=== PATIENT | female | born 1930 | race Caucasian/White ===

== ENCOUNTER 2017-11-09 11:38 | Inpatient (IN) | payer BC ==
[~2017-11-09] VITALS: Ht 309.9 cm; Wt 66.7 kg
[~2017-11-09 11:38] MED LIST: CLOP75TA15 PO; ESTR0.3T3 PO; LOSA50TA21 PO; NIFE60TA2 PO; PRAV40TA3 PO; TERB250T53 PO; ZOLP10TA2 PO
[2017-11-09] MEDS ORDERED: ASPIRIN 325 MG TABLET PO ONE (12:00)
[2017-11-09] MEDS ORDERED: IV NORMAL SALINE 500 ML BAG IV ONE (12:00)
[2017-11-09] MEDS ORDERED: NITROGLYCERIN 0.4 MG/TAB BOTTLE SL ONE ×2 (12:00→12:11)
[2017-11-09 12:03] LABS: BASOPHILS # (AUTO) 0.1 K/uL (0.0-8.0); BASOPHILS % (AUTO) 0.8 % (0.0-2.0); EOSINOPHILS % (AUTO) 0.3 % (0.0-7.0); HEMATOCRIT 40.4 % (31.2-41.9); HEMOGLOBIN 14.1 g/dL (10.9-14.3); LYMPHOCYTES # (AUTO) 2.2 K/uL (20.0-40.0); LYMPHOCYTES % (AUTO) 19.6 % (20.5-51.5); MEAN CORPUSCULAR HGB CONC 35 g/dL (32.3-35.6); MEAN CORPUSCULAR VOLUME 88.7 fL (75.5-95.3); MONOCYTES # (AUTO) 0.4 K/uL (2.0-10.0); MONOCYTES % (AUTO) 3.1 % (0.0-11.0); NEUTROPHILS # (AUTO) 8.7 K/uL (1.8-8.9); NEUTROPHILS % (AUTO) 76.2 % (38.5-71.5); PLATELET COUNT (AUTO) 242 K/uL (179-408); RED BLOOD CELL COUNT(AUTO) 4.56 MIL/uL (3.63-4.92); WHITE BLOOD COUNT (AUTO) 11.4 K/uL (3.8-11.8)
[2017-11-09] MEDS ORDERED: ASPIRIN 325 MG TABLET ONE (12:11)
[2017-11-09 12:14] LABS: CARBON DIOXIDE 22 mmol/L (21-32); CHLORIDE 105 mmol/L (98-107); CREATININE 0.8 mg/dL (0.6-1.3); GLUCOSE 142 mg/dL (74-106); POTASSIUM 4.1 mmol/L (3.5-5.1); UREA NITROGEN, BLOOD 19 mg/dL (7-18)
--- NOTE | 2017-11-09 12:20 | NUR ---
2nd dose of Nitro SL given, pain 6/10 and no , change from previous, HR 70, BP 134/73.
--- NOTE | 2017-11-09 12:25 | NUR ---
3rd dose of Nitro 0.4 mg Sl given pain 5/10 and decreased, HR 74, BP 139/60.
[2017-11-09 12:27] LABS: ALANINE AMINOTRANSFERASE 27 U/L (14-59); ALKALINE PHOSPHATASE 99 U/L (50-136); ASPARTATE AMINOTRANSFERASE 18 U/L (15-37); BILIRUBIN,DIRECT 0.1 mg/dL (0.0-0.2); BILIRUBIN,TOTAL 0.5 mg/dL (0.2-1.0); TOTAL PROTEIN, SERUM 6.8 g/dL (6.4-8.2)
[2017-11-09] MEDS ORDERED: SWABABLE VALVE TRANSFER SET EA MC ONE (12:51)
[2017-11-09] MEDS ORDERED: IV NORMAL SALINE 100 ML ONE (12:51)
[2017-11-09] MEDS ORDERED: IOHEXOL 350 100 ML INFUS..BTL ONE (12:51)
--- NOTE | 2017-11-09 12:51 | NUR ---
Pt signed consent for CTA, placed in the chart.
--- NOTE | 2017-11-09 13:07 | NUR ---
Pt left ER for CT.
[2017-11-09 14:30] VITALS: BP 167/68
[2017-11-09 15:53] VITALS: BP 176/65
[2017-11-09] MEDS: ACETAMINOPHEN 325 MG TABLET PO PRN ×2 (17:18→23:14)
[2017-11-09] MEDS: CARVEDILOL 6.25 MG TABLET PO SCH (18:22)
[2017-11-09] MEDS: ENOXAPARIN SODIUM 80 MG/0.8 ML DISP.SYRIN SQ SCH ×2 (18:22→20:59)
--- NOTE | 2017-11-09 18:40 | NUR ---
PT. CAME ON THE UNIT FROM ER VIA STRETCHER ON STABLE CONDITION. CHEST CT SCAN WITH CONTRAST DONE, AWAITING RESULT. LAST TROPONIN RELAYED TO MD. NOT IN DISTRESS. WILL CONTINUE MONITOR
[2017-11-09 20:00] VITALS: BP 155/62
--- NOTE | 2017-11-09 20:59 | NUR ---
Patient just received Lovenox 70 mg SQ 2 hrs ago from the day shift, so tonight's scheduled Lovenox not administered.
[2017-11-09] MEDS ORDERED: ATORVASTATIN 40 MG TABLET PO SCH (21:00)
[2017-11-09] MEDS: SUCRALFATE 1 G TABLET PO SCH (23:08)
[2017-11-10] VITALS (13 sets, daily range): BP systolic 93–161; BP diastolic 44–84
[2017-11-10] MEDS ORDERED: ZOLPIDEM 5 MG TABLET PO PRN (01:45)
[2017-11-10] MEDS ORDERED: diphenhydrAMINE 50 MG CAPSULE PO PRN (01:45)
[2017-11-10 06:13] LABS: BASOPHILS # (AUTO) 0.1 K/uL (0.0-8.0); BASOPHILS % (AUTO) 1.2 % (0.0-2.0); EOSINOPHILS # (AUTO) 0.2 K/uL (0.0-0.7); EOSINOPHILS % (AUTO) 2.1 % (0.0-7.0); HEMATOCRIT 36.3 % (31.2-41.9); LYMPHOCYTES # (AUTO) 3.6 K/uL (20.0-40.0); LYMPHOCYTES % (AUTO) 40.3 % (20.5-51.5); MEAN CORPUSCULAR HEMOGLOBIN 31.8 uug (24.7-32.8); MEAN CORPUSCULAR HGB CONC 36 g/dL (32.3-35.6); MEAN CORPUSCULAR VOLUME 89.2 fL (75.5-95.3); MONOCYTES # (AUTO) 0.6 K/uL (2.0-10.0); MONOCYTES % (AUTO) 6.8 % (0.0-11.0); NEUTROPHILS # (AUTO) 4.5 K/uL (1.8-8.9); NEUTROPHILS % (AUTO) 49.6 % (38.5-71.5); PLATELET COUNT (AUTO) 216 K/uL (179-408); RED BLOOD CELL COUNT(AUTO) 4.07 MIL/uL (3.63-4.92)
[2017-11-10 06:24] LABS: CARBON DIOXIDE 25 mmol/L (21-32); CHLORIDE 105 mmol/L (98-107); CREATININE 0.8 mg/dL (0.6-1.3); GLUCOSE 95 mg/dL (74-106); MAGNESIUM 1.8 mg/dL (1.8-2.4); PHOSPHOROUS 3.4 mg/dL (2.5-4.9); POTASSIUM 3.7 mmol/L (3.5-5.1); UREA NITROGEN, BLOOD 15 mg/dL (7-18)
[2017-11-10 06:37] LABS: THYROID STIMULATING HORMONE 5.357 mIU/mL (0.358-3.740)
[2017-11-10] MEDS: SUCRALFATE 1 G TABLET PO SCH ×2 (06:41→11:30)
[2017-11-10] MEDS ORDERED: PANTOPRAZOLE SODIUM 40 MG TABLET.DR PO SCH (07:00)
--- NOTE | 2017-11-10 07:18 | NUR ---
Received critical report of troponin 16. 457. Patient sleeping, comfortable at this time, not in distress. Tele SR first degree block. Called report to MD injection molding machine tender, or Jesus Duque
[2017-11-10] MEDS: CARVEDILOL 6.25 MG TABLET PO SCH (07:59)
[2017-11-10] MEDS ORDERED: MORPHINE SULFATE 4 MG/1 ML DISP.SYRIN IV PRN (08:00)
--- NOTE | 2017-11-10 08:00 | NUR ---
Vital signs taken and recorded. Seen by Simon Sierra. EKG done. RA O2 sat 97%. Placed on O2 at 2L/NC. BP medications given
[2017-11-10] MEDS ORDERED: NITROGLYCERIN 0.4 MG/TAB BOTTLE SL PRN (08:15)
[2017-11-10] MEDS: ENOXAPARIN SODIUM 80 MG/0.8 ML DISP.SYRIN SQ SCH (08:20)
--- NOTE | 2017-11-10 08:25 | NUR ---
Simon Sierra arranging transfer to [facility] for heart cath, speaking with Dr. Castelan. Aspirin, Plavix, nitro SL given. Lovenox on hold.
[2017-11-10] MEDS ORDERED: ASPIRIN EC 325 MG TABLET.DR PO SCH (09:00)
[2017-11-10] MEDS ORDERED: NIFEdipine XL 60 MG TABSR PO SCH (09:00)
[2017-11-10] MEDS ORDERED: ASPIRIN EC 81 MG TABLET.DR PO SCH (09:00)
[2017-11-10] MEDS ORDERED: CLOPIDOGREL 75 MG TABLET PO SCH ×2 (09:00)
[2017-11-10] MEDS ORDERED: ESTROGENS,CONJUGATED 0.3 MG TABLET PO SCH ×2 (09:00)
[2017-11-10] MEDS ORDERED: LOSARTAN POTASSIUM 50 MG TABLET PO SCH ×2 (09:00)
--- NOTE | 2017-11-10 09:00 | NUR ---
Kept NPO. No relief after Nitro to shoulder blade pain. Morphine given. Will continue to monitor. Followed up connie ana maria Mccullough [facility], she will call back once confirmation of Heart Cath time schedule
[2017-11-10] MEDS ORDERED: HEPARIN/D5W DRIP 500 ML IV PRN (10:30)
[2017-11-10] MEDS ORDERED: NITROGLYCERIN IV 250 ML IV PRN (10:30)
--- NOTE | 2017-11-10 10:30 | NUR ---
Complained of increasing chest pain. Additional Nitro SL given. With orders to transfer to ICU to be started on Heparin and Nitro drip while waiting for transfer to [facility], mixing picker tender changed to [id number]
[2017-11-10] MEDS ORDERED: HEPARIN SODIUM,PORCINE 5,000 UNITS/ML VIAL IV ONE (11:00)
--- NOTE | 2017-11-10 11:00 | NUR ---
Transferred to ICU. Heparin bolus given and Heparin drip started at 792 units/hr at 15.84 ml/hr. Nitroglycerin drip started 5 mcg/hr at 1.5 ml/hr
[2017-11-10] MEDS ORDERED: HEPARIN SODIUM,PORCINE 5,000 UNITS/ML VIAL IV PRN (11:30)
--- NOTE | 2017-11-10 11:50 | NUR ---
Report given to Josee of [facility].
--- NOTE | 2017-11-10 12:10 | NUR ---
Transferred to [facility] via [facility] ambulance, report given to Sailaja VIEYRA. Son, Job informed. Latest vital signs 101/60, HR 62, RR 19 SPO2 97%
[2017-11-10] MEDS ORDERED: ATORVASTATIN 40 MG TABLET PO SCH (21:00)
== END 2017-11-10 12:10 | disposition short-term general hospital (02) | DRG 282 ==
LOC: ER 11:41 → TELE 13:25 → ER 13:35 → TELE-TD 11-10 09:29 → CCU 11-10 10:52
PROVIDERS: ADMIT Nurse Practitioner Acute Care; ATTEND Nurse Practitioner Acute Care
DX: I21.4 Non-ST elevation (NSTEMI) myocardial infarction (principal); I11.9 Hypertensive heart disease without heart failure; I44.7 Left bundle-branch block, unspecified; E78.5 Hyperlipidemia, unspecified; I73.9 Peripheral vascular disease, unspecified; M06.9 Rheumatoid arthritis, unspecified; G89.29 Other chronic pain; Z79.02 Long term (current) use of antithrombotics/antiplatelets; Z90.710 Acquired absence of both cervix and uterus; Z79.890 Hormone replacement therapy; Z98.62 Peripheral vascular angioplasty status; Z90.49 Acquired absence of other specified parts of digestive tract; I44.0 Atrioventricular block, first degree; Z87.891 Personal history of nicotine dependence; R94.6 Abnormal results of thyroid function studies
CPT/HCPCS: 36415; 70030-TC; 71045; 83735; 84100; 84443; 84481; 85025; 85730; 93005; 93307; A4663; J1644; J1650; J2270; J3490; J7030; J8499; Q0163; Q9967